=== PATIENT | male | born 1965 | race Caucasian/White ===

== ENCOUNTER 2017-12-13 14:24 | Emergency (ER) | payer SELFPAY ==
[2017-12-13] MEDS: DIPHTH,PERTUSS(ACELL),TET TOX 0.5 ML DISP.SYRIN. VAX IM (14:59)
== END 2017-12-13 15:20 | disposition home or self-care (01) ==
LOC: ER 14:24
DX: L98.8 Other specified disorders of the skin and subcutaneous tissue (principal); R03.0 Elevated blood-pressure reading, without diagnosis of hypertension; F17.200 Nicotine dependence, unspecified, uncomplicated; Z88.5 Allergy status to narcotic agent
CPT/HCPCS: 90471; 90715; 99283-25